=== PATIENT | male | born 1985 | race Caucasian/White ===

== ENCOUNTER 2020-11-08 08:48 | Emergency (ER) | payer OTHER ==
[~2020-11-08] VITALS: Ht 177.8 cm; Wt 63.5 kg
--- NOTE | 2020-11-08 09:15 | NUR ---
Gave pt sandwiches and juice. Gave basin, etc to pt to washhis feet.
--- NOTE | 2020-11-08 09:28 | NUR ---
Gave pt d/c instructions and resources, pt verbalized understanding.
== END 2020-11-08 09:38 | disposition home or self-care (01) ==
LOC: ER 08:48
DX: R53.83 Other fatigue (principal); Z59.0 Homelessness; T73.0XXA Starvation, initial encounter; X58.XXXA Exposure to other specified factors, initial encounter; F17.200 Nicotine dependence, unspecified, uncomplicated; F43.10 Post-traumatic stress disorder, unspecified; F32.9 Major depressive disorder, single episode, unspecified; S90.111A Contusion of right great toe without damage to nail, initial encounter; W50.0XXA Accidental hit or strike by another person, initial encounter; Y92.89 Other specified places as the place of occurrence of the external cause; Y99.8 Other external cause status
CPT/HCPCS: A4663